=== PATIENT | female | born 1955 | race Caucasian/White ===

== ENCOUNTER 2018-08-29 19:13 | Inpatient (IN) | payer MEDICARE, OTHER ==
[2018-08-29 23:10] LABS: ADD UMIC YES; UR ASCORBIC ACID 40 mg/dL (NEGATIVE); UR BACTERIA FEW /HPF (NONE SEEN); UR BILIRUBIN (Dip) NEGATIVE (NEGATIVE); UR BLOOD (Dip) NEGATIVE (NEGATIVE); UR BUDDING YEAST FEW /HPF (NONE SEEN); UR CLARITY CLOUDY (CLEAR); UR COLOR YELLOW (YELLOW); UR GLUCOSE (Dip) NEGATIVE (NEGATIVE); UR KETONES (Dip) TRACE mg/dL (NEGATIVE); UR LEUKOCYTE ESTERASE (Dip) 3+ Leu/ul (NEGATIVE); UR MUCUS FEW /HPF (NONE SEEN); UR NITRITE (Dip) NEGATIVE (NEGATIVE); UR RBC 18 /HPF (0-5); UR SPECIFIC GRAVITY (Dip) 1.024 (1.003-1.030); UR SQUAMOUS EPITHELIAL CELL MODERATE /HPF (FEW); UR TOTAL PROTEIN (Dip) NEGATIVE (NEGATIVE); UR UROBILINOGEN (Dip) NEGATIVE (NEGATIVE); UR WBC > 182 /HPF (0-5)
[2018-08-29] MEDS: HYDROCODONE/APAP (10/325) TAB PO (23:12)
[2018-08-29] MEDS: METHYLPHENIDATE 20 MG TAB PO (23:30)
[2018-08-30] MEDS: PANTOPRAZOLE (EC) 40 MG TAB PO ×3 (01:02→18:51)
[2018-08-30] MEDS: CELECOXIB 200 MG CAP PO ×3 (01:03→21:09)
[2018-08-30] MEDS: DIAZEPAM 2 MG TAB PO ×3 (01:03→21:10)
[2018-08-30] MEDS: DIVALPROEX (ER) 250 MG TAB PO ×3 (01:04→21:10)
[2018-08-30] MEDS: RANITIDINE 150 MG TAB PO ×3 (01:11→21:10)
[2018-08-30] MEDS: CLOZAPINE 100 MG TABLET PO ×2 (02:12→21:27)
[2018-08-30] MEDS: VANCOMYCIN HCL 250 MG/5ML POSYG PO ×5 (02:12→23:29)
[2018-08-30] MEDS: MESALAMINE (SR) 250 MG CAP PO ×3 (02:13→21:09)
[2018-08-30] MEDS: PERPHENAZINE 4 MG TAB PO ×3 (02:13→20:01)
[2018-08-30] MEDS: ESTRADIOL 1 MG TAB PO ×2 (02:13→21:10)
[2018-08-30 07:11] LABS: ADD MAN DIFF? NO
[2018-08-30 07:14] LABS: WHITE BLOOD COUNT 9.9 10^3/ul (4.8-10.8)
[2018-08-30 07:14] LABS: BASOPHIL # 0.3 10^3/ul (0.0-0.1); BASOPHILS % 2.7 % (0.0-2.0); EOSINOPHILS # 0.6 10^3/ul (0.0-0.5); EOSINOPHILS % 6.1 % (0.0-7.0); HEMATOCRIT 30.9 % (37.0-47.0); HEMOGLOBIN 9.1 g/dl (12.0-16.0); LYMPHOCYTES # 2.5 10^3/ul (0.8-2.9); LYMPHOCYTES % 24.8 % (15.0-51.0); MEAN CORPUSCULAR HEMOGLOBIN 27.8 pg (29.0-33.0); MEAN CORPUSCULAR HGB CONC 29.4 g/dl (32.0-37.0); MEAN CORPUSCULAR VOLUME 94.5 fl (82.0-101.0); MEAN PLATELET VOLUME 10.8 fl (7.4-10.4); MONOCYTE # 0.9 10^3/ul (0.3-0.9); MONOCYTES % 9.5 % (0.0-11.0); NEUTROPHIL # 5.1 10^3/ul (1.6-7.5); PLATELET COUNT 162 10^3/UL (140-415); RED BLOOD COUNT 3.27 10^6/ul (4.20-5.40); RED CELL DISTRIBUTION WIDTH 14.5 % (11.5-14.5)
[2018-08-30 07:55] LABS: ALANINE AMINOTRANSFERASE 26 IU/L (13-69); ALBUMIN 3.6 g/dl (3.3-4.9); ALBUMIN/GLOBULIN RATIO 0.92; ALKALINE PHOSPHATASE 107 IU/L (42-121); ANION GAP 7 (5-13); ASPARTATE AMINO TRANSFERASE 32 IU/L (15-46); BILIRUBIN,INDIRECT 0.1 mg/dl (0-1.1); BILIRUBIN,TOTAL 0.1 mg/dl (0.2-1.3); BLOOD UREA NITROGEN 37 mg/dl (7-20); CARBON DIOXIDE 35 mmol/L (21-31); CHLORIDE 101 mmol/L (97-110); CREATININE 1.02 mg/dl (0.44-1.00); Estimated GFR 54 mL/min (>60); GLUCOSE 93 mg/dl (70-220); POTASSIUM 4.5 mmol/L (3.5-5.1); SODIUM 143 mmol/L (135-144); TOTAL PROTEIN 7.5 g/dl (6.1-8.1)
[2018-08-30] MEDS ORDERED: CELECOXIB 200 MG CAP PO (09:00)
[2018-08-30] MEDS ORDERED: PARNATE PO (09:00)
[2018-08-30] MEDS ORDERED: DIAZEPAM 2 MG TAB PO (09:00)
[2018-08-30] MEDS: CHOLECALCIFEROL 1,000 UNIT TAB PO (09:42)
[2018-08-30] MEDS: HYDROCODONE/APAP (10/325) TAB PO ×3 (09:42→21:31)
[2018-08-30] MEDS: METHYLPHENIDATE 5 MG TAB PO ×2 (11:56→17:00)
[2018-08-30] MEDS: TRANYLCYPROMINE 10 MG PO (17:30)
[2018-08-30] MEDS ORDERED: CLOZAPINE 100 MG TABLET PO ×2 (21:00)
[2018-08-31] MEDS: VANCOMYCIN HCL 250 MG/5ML POSYG PO ×5 (06:33→23:08)
[2018-08-31] MEDS: METHYLPHENIDATE 5 MG TAB PO ×2 (06:34→08:23)
[2018-08-31] MEDS: PANTOPRAZOLE (EC) 40 MG TAB PO ×3 (06:41→17:46)
[2018-08-31 07:10] LABS: ADD MAN DIFF? NO
[2018-08-31 07:12] LABS: WHITE BLOOD COUNT 11.2 10^3/ul (4.8-10.8)
[2018-08-31 07:12] LABS: BASOPHIL # 0.2 10^3/ul (0.0-0.1); BASOPHILS % 2.1 % (0.0-2.0); EOSINOPHILS # 0.6 10^3/ul (0.0-0.5); EOSINOPHILS % 4.9 % (0.0-7.0); HEMOGLOBIN 9.2 g/dl (12.0-16.0); MEAN CORPUSCULAR HGB CONC 29.7 g/dl (32.0-37.0); MEAN CORPUSCULAR VOLUME 94.2 fl (82.0-101.0); MEAN PLATELET VOLUME 10.9 fl (7.4-10.4); MONOCYTE # 1.1 10^3/ul (0.3-0.9); MONOCYTES % 10.2 % (0.0-11.0); NEUTROPHIL # 6.9 10^3/ul (1.6-7.5); NEUTROPHILS % 61.8 % (39.0-77.0); PLATELET COUNT 170 10^3/UL (140-415); RED BLOOD COUNT 3.29 10^6/ul (4.20-5.40)
[2018-08-31 07:43] LABS: ANION GAP 9 (5-13); BLOOD UREA NITROGEN 34 mg/dl (7-20); CALCIUM 9.7 mg/dl (8.4-10.2); CARBON DIOXIDE 32 mmol/L (21-31); CHLORIDE 103 mmol/L (97-110); CREATININE 1.05 mg/dl (0.44-1.00); Estimated GFR 53 mL/min (>60); GLUCOSE 101 mg/dl (70-220); MAGNESIUM 1.6 mg/dl (1.7-2.5); POTASSIUM 4.4 mmol/L (3.5-5.1); SODIUM 144 mmol/L (135-144)
[2018-08-31] MEDS ORDERED: TRANYLCYPROMINE 10 MG PO (09:00)
[2018-08-31] MEDS: MESALAMINE (SR) 250 MG CAP PO ×2 (09:45→20:39)
[2018-08-31] MEDS: TRANYLCYPROMINE 10 MG PO (09:45)
[2018-08-31] MEDS: DIAZEPAM 2 MG TAB PO ×2 (09:46→20:40)
[2018-08-31] MEDS: RANITIDINE 150 MG TAB PO ×2 (09:46→20:38)
[2018-08-31] MEDS: CHOLECALCIFEROL 1,000 UNIT TAB PO (09:46)
[2018-08-31] MEDS: PERPHENAZINE 4 MG TAB PO ×2 (09:46→20:41)
[2018-08-31] MEDS: DIVALPROEX (ER) 250 MG TAB PO ×2 (09:47→20:39)
[2018-08-31] MEDS: CELECOXIB 200 MG CAP PO ×2 (09:47→20:40)
[2018-08-31] MEDS ORDERED: GENTAMICIN IV PER PHARMACY XX (11:00)
[2018-08-31] MEDS: METHYLPHENIDATE 20 MG TAB PO ×2 (11:00→15:00)
[2018-08-31] MEDS: MAGNESIUM OXIDE 400 MG TAB PO (12:47)
[2018-08-31] MEDS: HYDROCODONE/APAP (10/325) TAB PO ×3 (12:48→23:04)
[2018-08-31] MEDS: GENTAMICIN 350 MG in DEXTROSE 5% 100 ML IVPB (14:11)
[2018-08-31] MEDS: CLOZAPINE 100 MG TABLET PO (20:37)
[2018-08-31] MEDS: ESTRADIOL 1 MG TAB PO (20:39)
[2018-09-01 00:07] LABS: GENTAMICIN,RANDOM 6.5 ug/ml
[2018-09-01] MEDS: PANTOPRAZOLE (EC) 40 MG TAB PO ×2 (06:43→17:58)
[2018-09-01] MEDS: VANCOMYCIN HCL 250 MG/5ML POSYG PO ×3 (06:44→17:58)
[2018-09-01] MEDS: METHYLPHENIDATE 20 MG TAB PO ×3 (07:32→14:35)
[2018-09-01] MEDS: TRANYLCYPROMINE 10 MG PO (07:33)
[2018-09-01] MEDS: CHOLECALCIFEROL 1,000 UNIT TAB PO (08:52)
[2018-09-01] MEDS: RANITIDINE 150 MG TAB PO ×2 (08:53→20:12)
[2018-09-01] MEDS: MESALAMINE (SR) 250 MG CAP PO ×2 (08:54→20:14)
[2018-09-01] MEDS: MAGNESIUM OXIDE 400 MG TAB PO (08:55)
[2018-09-01] MEDS: PERPHENAZINE 4 MG TAB PO ×3 (08:55→23:04)
[2018-09-01] MEDS: DIAZEPAM 2 MG TAB PO ×2 (08:55→20:13)
[2018-09-01] MEDS: DIVALPROEX (ER) 250 MG TAB PO ×2 (08:55→20:14)
[2018-09-01] MEDS: ENOXAPARIN 30 MG/0.3 ML SYG SC (08:57)
[2018-09-01] MEDS: HYDROCODONE/APAP (10/325) TAB PO ×3 (08:57→20:12)
[2018-09-01] MEDS: ESTRADIOL 1 MG TAB PO (20:13)
[2018-09-01] MEDS: CLOZAPINE 100 MG TABLET PO (20:15)
[2018-09-02] MEDS: VANCOMYCIN HCL 250 MG/5ML POSYG PO ×5 (00:17→23:28)
[2018-09-02] MEDS: HYDROCODONE/APAP (10/325) TAB PO ×5 (00:18→23:27)
[2018-09-02] MEDS: GENTAMICIN 350 MG in DEXTROSE 5% 100 ML IVPB (01:53)
[2018-09-02] MEDS: METHYLPHENIDATE 20 MG TAB PO ×3 (06:25→15:00)
[2018-09-02] MEDS: PANTOPRAZOLE (EC) 40 MG TAB PO ×2 (06:25→18:46)
[2018-09-02] MEDS: TRANYLCYPROMINE 10 MG PO (06:45)
[2018-09-02 07:38] LABS: ADD MAN DIFF? NO
[2018-09-02 07:46] LABS: ABNORMAL IP MESSAGE 1; BASOPHIL # 0.2 10^3/ul (0.0-0.1); BASOPHILS % 2.7 % (0.0-2.0); EOSINOPHILS # 0.5 10^3/ul (0.0-0.5); EOSINOPHILS % 6.2 % (0.0-7.0); HEMATOCRIT 29.4 % (37.0-47.0); HEMOGLOBIN 8.5 g/dl (12.0-16.0); LYMPHOCYTES # 1.9 10^3/ul (0.8-2.9); MEAN CORPUSCULAR HEMOGLOBIN 27.2 pg (29.0-33.0); MEAN CORPUSCULAR HGB CONC 28.9 g/dl (32.0-37.0); MEAN CORPUSCULAR VOLUME 94.2 fl (82.0-101.0); MEAN PLATELET VOLUME 11.3 fl (7.4-10.4); MONOCYTE # 0.7 10^3/ul (0.3-0.9); MONOCYTES % 9.8 % (0.0-11.0); NEUTROPHIL # 3.9 10^3/ul (1.6-7.5); NEUTROPHILS % 52.5 % (39.0-77.0); PLATELET COUNT 146 10^3/UL (140-415); RED BLOOD COUNT 3.12 10^6/ul (4.20-5.40)
[2018-09-02 07:46] LABS: WHITE BLOOD COUNT 7.5 10^3/ul (4.8-10.8)
[2018-09-02 08:00] LABS: POSITIVE DIFF @See below
[2018-09-02 08:05] LABS: ANION GAP 8 (5-13); BLOOD UREA NITROGEN 33 mg/dl (7-20); CALCIUM 9.3 mg/dl (8.4-10.2); CARBON DIOXIDE 35 mmol/L (21-31); CHLORIDE 99 mmol/L (97-110); CREATININE 1.05 mg/dl (0.44-1.00); Estimated GFR 53 mL/min (>60); GLUCOSE 88 mg/dl (70-220); MAGNESIUM 1.6 mg/dl (1.7-2.5); PHOSPHORUS 4.6 mg/dl (2.5-4.9); POTASSIUM 4.4 mmol/L (3.5-5.1); SODIUM 142 mmol/L (135-144)
[2018-09-02] MEDS: MESALAMINE (SR) 250 MG CAP PO ×2 (09:00→21:19)
[2018-09-02] MEDS ORDERED: ALBUTEROL/IPRATROPIUM (NEB) 3 ML AMP HHN (09:30)
[2018-09-02] MEDS: PERPHENAZINE 4 MG TAB PO ×2 (10:20→21:19)
[2018-09-02] MEDS: MAGNESIUM OXIDE 400 MG TAB PO (10:20)
[2018-09-02] MEDS: RANITIDINE 150 MG TAB PO ×2 (10:20→21:19)
[2018-09-02] MEDS: DIVALPROEX (ER) 250 MG TAB PO ×2 (10:20→21:19)
[2018-09-02] MEDS: DIAZEPAM 2 MG TAB PO ×2 (10:20→21:19)
[2018-09-02] MEDS: CHOLECALCIFEROL 1,000 UNIT TAB PO (10:20)
[2018-09-02] MEDS: ENOXAPARIN 30 MG/0.3 ML SYG SC (10:35)
[2018-09-02] MEDS: CLOZAPINE 100 MG TABLET PO (21:18)
[2018-09-02] MEDS: ESTRADIOL 1 MG TAB PO (21:19)
[2018-09-03] MEDS: PERPHENAZINE 4 MG TAB PO ×3 (02:51→21:27)
[2018-09-03] MEDS: HYDROCODONE/APAP (10/325) TAB PO ×3 (03:39→20:47)
[2018-09-03] MEDS: PANTOPRAZOLE (EC) 40 MG TAB PO ×2 (06:27→17:53)
[2018-09-03] MEDS: VANCOMYCIN HCL 250 MG/5ML POSYG PO ×4 (06:27→23:02)
[2018-09-03] MEDS: METHYLPHENIDATE 20 MG TAB PO ×3 (06:27→15:00)
[2018-09-03] MEDS: TRANYLCYPROMINE 10 MG PO ×2 (07:00→12:55)
[2018-09-03] MEDS: MAGNESIUM OXIDE 400 MG TAB PO ×2 (09:00→12:52)
[2018-09-03] MEDS: DIAZEPAM 2 MG TAB PO ×2 (09:00→21:27)
[2018-09-03] MEDS: CHOLECALCIFEROL 1,000 UNIT TAB PO ×2 (09:00→12:47)
[2018-09-03] MEDS: RANITIDINE 150 MG TAB PO ×3 (09:00→20:46)
[2018-09-03] MEDS: MESALAMINE (SR) 250 MG CAP PO ×3 (09:00→20:45)
[2018-09-03] MEDS: DIVALPROEX (ER) 250 MG TAB PO ×3 (09:00→20:46)
[2018-09-03] MEDS: ENOXAPARIN 30 MG/0.3 ML SYG SC ×2 (09:00→13:07)
[2018-09-03 14:31] LABS: GENTAMICIN,TROUGH < 0.6 ug/ml (1.0-2.0)
[2018-09-03] MEDS: GENTAMICIN 350 MG in DEXTROSE 5% 100 ML IVPB (14:33)
[2018-09-03] MEDS: CLOZAPINE 100 MG TABLET PO (20:45)
[2018-09-03] MEDS: ESTRADIOL 1 MG TAB PO (20:45)
[2018-09-04] MEDS: VANCOMYCIN HCL 250 MG/5ML POSYG PO ×4 (06:32→23:13)
[2018-09-04] MEDS: PANTOPRAZOLE (EC) 40 MG TAB PO ×2 (06:32→17:51)
[2018-09-04] MEDS: TRANYLCYPROMINE 10 MG PO (06:32)
[2018-09-04] MEDS: METHYLPHENIDATE 20 MG TAB PO ×3 (06:32→17:51)
[2018-09-04 07:17] LABS: ADD MAN DIFF? NO
[2018-09-04 07:22] LABS: WHITE BLOOD COUNT 9.8 10^3/ul (4.8-10.8)
[2018-09-04 07:22] LABS: BASOPHIL # 0.1 10^3/ul (0.0-0.1); BASOPHILS % 1.3 % (0.0-2.0); EOSINOPHILS # 0.4 10^3/ul (0.0-0.5); EOSINOPHILS % 3.6 % (0.0-7.0); HEMATOCRIT 28.9 % (37.0-47.0); HEMOGLOBIN 8.5 g/dl (12.0-16.0); LYMPHOCYTES # 1.4 10^3/ul (0.8-2.9); LYMPHOCYTES % 14.4 % (15.0-51.0); MEAN CORPUSCULAR HEMOGLOBIN 27.5 pg (29.0-33.0); MEAN CORPUSCULAR HGB CONC 29.4 g/dl (32.0-37.0); MEAN CORPUSCULAR VOLUME 93.5 fl (82.0-101.0); MEAN PLATELET VOLUME 11.5 fl (7.4-10.4); MONOCYTE # 1.3 10^3/ul (0.3-0.9); MONOCYTES % 13.5 % (0.0-11.0); NEUTROPHIL # 6.4 10^3/ul (1.6-7.5); NEUTROPHILS % 65.5 % (39.0-77.0); PLATELET COUNT 135 10^3/UL (140-415); RED BLOOD COUNT 3.09 10^6/ul (4.20-5.40); RED CELL DISTRIBUTION WIDTH 14.9 % (11.5-14.5)
[2018-09-04 07:39] LABS: ANION GAP 7 (5-13); BLOOD UREA NITROGEN 18 mg/dl (7-20); CALCIUM 9.1 mg/dl (8.4-10.2); CARBON DIOXIDE 36 mmol/L (21-31); CHLORIDE 99 mmol/L (97-110); CREATININE 0.89 mg/dl (0.44-1.00); Estimated GFR > 60 mL/min (>60); GLUCOSE 91 mg/dl (70-220); MAGNESIUM 1.6 mg/dl (1.7-2.5); PHOSPHORUS 4.4 mg/dl (2.5-4.9); POTASSIUM 4.2 mmol/L (3.5-5.1); SODIUM 142 mmol/L (135-144)
[2018-09-04] MEDS: PERPHENAZINE 4 MG TAB PO ×3 (08:42→20:46)
[2018-09-04] MEDS: MAGNESIUM OXIDE 400 MG TAB PO (08:42)
[2018-09-04] MEDS: CHOLECALCIFEROL 1,000 UNIT TAB PO (08:42)
[2018-09-04] MEDS: RANITIDINE 150 MG TAB PO ×2 (08:42→20:46)
[2018-09-04] MEDS: MESALAMINE (SR) 250 MG CAP PO ×2 (08:42→20:46)
[2018-09-04] MEDS: DIVALPROEX (ER) 250 MG TAB PO ×2 (08:43→20:46)
[2018-09-04] MEDS: DIAZEPAM 2 MG TAB PO ×2 (08:43→20:46)
[2018-09-04] MEDS: ENOXAPARIN 30 MG/0.3 ML SYG SC (08:44)
[2018-09-04] MEDS: HYDROCODONE/APAP (10/325) TAB PO ×3 (08:44→20:47)
[2018-09-04] MEDS: CLOZAPINE 100 MG TABLET PO (20:45)
[2018-09-04] MEDS: ESTRADIOL 1 MG TAB PO (20:46)
[2018-09-04] MEDS: LEVALBUTEROL (NEB) 0.31 MG/3 ML AMP HHN (22:58)
[2018-09-05] MEDS: GENTAMICIN 350 MG in DEXTROSE 5% 100 ML IVPB (02:06)
[2018-09-05] MEDS: HYDROCODONE/APAP (10/325) TAB PO ×3 (05:15→19:47)
[2018-09-05] MEDS: PANTOPRAZOLE (EC) 40 MG TAB PO ×2 (06:34→17:17)
[2018-09-05] MEDS: VANCOMYCIN HCL 250 MG/5ML POSYG PO ×4 (06:34→23:08)
[2018-09-05] MEDS: METHYLPHENIDATE 20 MG TAB PO ×3 (06:34→15:00)
[2018-09-05] MEDS: TRANYLCYPROMINE 10 MG PO (06:38)
[2018-09-05] MEDS: MESALAMINE (SR) 250 MG CAP PO ×2 (09:16→20:46)
[2018-09-05] MEDS: DIVALPROEX (ER) 250 MG TAB PO ×2 (09:16→20:47)
[2018-09-05] MEDS: PERPHENAZINE 4 MG TAB PO ×2 (09:16→20:47)
[2018-09-05] MEDS: MAGNESIUM OXIDE 400 MG TAB PO (09:16)
[2018-09-05] MEDS: DIAZEPAM 2 MG TAB PO ×2 (09:16→20:46)
[2018-09-05] MEDS: CHOLECALCIFEROL 1,000 UNIT TAB PO (09:16)
[2018-09-05] MEDS: ENOXAPARIN 30 MG/0.3 ML SYG SC (09:27)
[2018-09-05] MEDS: RANITIDINE 150 MG TAB PO ×2 (09:50→20:45)
[2018-09-05] MEDS: FLUCONAZOLE 100 MG TAB PO (12:26)
[2018-09-05] MEDS: ESTRADIOL 1 MG TAB PO (20:47)
[2018-09-05] MEDS: CLOZAPINE 100 MG TABLET PO (20:47)
[2018-09-05] MEDS: ASCORBIC ACID 250 MG TAB PO (21:04)
[2018-09-05] MEDS: GUAIFENESIN/CODEINE 5ML CUP PO (21:04)
[2018-09-06] MEDS: PERPHENAZINE 4 MG TAB PO ×3 (00:43→20:10)
[2018-09-06] MEDS: GUAIFENESIN/CODEINE 5ML CUP PO ×2 (00:43→20:50)
[2018-09-06] MEDS: HYDROCODONE/APAP (10/325) TAB PO ×3 (00:43→17:32)
[2018-09-06] MEDS: PANTOPRAZOLE (EC) 40 MG TAB PO ×2 (06:01→17:29)
[2018-09-06] MEDS: METHYLPHENIDATE 20 MG TAB PO ×3 (06:01→15:01)
[2018-09-06] MEDS: VANCOMYCIN HCL 250 MG/5ML POSYG PO ×3 (06:01→17:29)
[2018-09-06] MEDS: TRANYLCYPROMINE 10 MG PO (06:01)
[2018-09-06 06:37] LABS: BLOOD UREA NITROGEN 17 mg/dl (7-20)
[2018-09-06 06:37] LABS: CREATININE 1.07 mg/dl (0.44-1.00)
[2018-09-06] MEDS: MAGNESIUM OXIDE 400 MG TAB PO (09:17)
[2018-09-06] MEDS: PREDNISOLONE ACET 0.12% 5 ML OPH BOTH EYES (09:17)
[2018-09-06] MEDS: FLUCONAZOLE 100 MG TAB PO (09:17)
[2018-09-06] MEDS: DIVALPROEX (ER) 250 MG TAB PO ×2 (09:17→20:09)
[2018-09-06] MEDS: DIAZEPAM 2 MG TAB PO ×2 (09:18→20:09)
[2018-09-06] MEDS: RANITIDINE 150 MG TAB PO ×2 (09:18→20:09)
[2018-09-06] MEDS: MESALAMINE (SR) 250 MG CAP PO ×2 (09:18→20:08)
[2018-09-06] MEDS: CHOLECALCIFEROL 1,000 UNIT TAB PO (09:18)
[2018-09-06] MEDS: ENOXAPARIN 30 MG/0.3 ML SYG SC (09:28)
[2018-09-06] MEDS: GENTAMICIN 350 MG in DEXTROSE 5% 100 ML IVPB (13:25)
[2018-09-06] MEDS: CLOZAPINE 100 MG TABLET PO (20:09)
[2018-09-06] MEDS: ASCORBIC ACID 250 MG TAB PO (20:09)
[2018-09-06] MEDS: ESTRADIOL 1 MG TAB PO (20:17)
[2018-09-06] MEDS: LUMIGAN 0.01% EYE DROPS BOTH EYES (20:17)
[2018-09-06] MEDS: LEVALBUTEROL (NEB) 0.31 MG/3 ML AMP HHN (21:18)
[2018-09-07] MEDS: VANCOMYCIN HCL 250 MG/5ML POSYG PO ×4 (00:03→17:17)
[2018-09-07] MEDS: HYDROCODONE/APAP (10/325) TAB PO ×3 (03:38→20:41)
[2018-09-07] MEDS: GUAIFENESIN/CODEINE 5ML CUP PO ×2 (03:38→17:58)
[2018-09-07] MEDS: PANTOPRAZOLE (EC) 40 MG TAB PO ×2 (06:10→17:17)
[2018-09-07] MEDS: TRANYLCYPROMINE 10 MG PO (06:10)
[2018-09-07] MEDS: METHYLPHENIDATE 20 MG TAB PO ×3 (06:10→14:53)
[2018-09-07] MEDS: DIAZEPAM 2 MG TAB PO ×2 (08:17→20:41)
[2018-09-07] MEDS: PREDNISOLONE ACET 0.12% 5 ML OPH BOTH EYES (08:17)
[2018-09-07] MEDS: DIVALPROEX (ER) 250 MG TAB PO ×2 (08:18→20:39)
[2018-09-07] MEDS: RANITIDINE 150 MG TAB PO ×2 (08:18→20:40)
[2018-09-07] MEDS: PERPHENAZINE 4 MG TAB PO ×2 (08:18→20:39)
[2018-09-07] MEDS: CHOLECALCIFEROL 1,000 UNIT TAB PO (08:18)
[2018-09-07] MEDS: FLUCONAZOLE 100 MG TAB PO (08:18)
[2018-09-07] MEDS: MAGNESIUM OXIDE 400 MG TAB PO (08:18)
[2018-09-07] MEDS: MESALAMINE (SR) 250 MG CAP PO ×2 (08:18→20:38)
[2018-09-07] MEDS: ENOXAPARIN 30 MG/0.3 ML SYG SC (08:19)
[2018-09-07] MEDS: ESTRADIOL 1 MG TAB PO (20:39)
[2018-09-07] MEDS: ASCORBIC ACID 250 MG TAB PO (20:40)
[2018-09-07] MEDS: CLOZAPINE 100 MG TABLET PO (20:40)
[2018-09-07] MEDS: LUMIGAN 0.01% EYE DROPS BOTH EYES (20:42)
[2018-09-08] MEDS: VANCOMYCIN HCL 250 MG/5ML POSYG PO ×4 (00:09→17:32)
[2018-09-08] MEDS: GENTAMICIN 350 MG in DEXTROSE 5% 100 ML IVPB (02:19)
[2018-09-08] MEDS: PANTOPRAZOLE (EC) 40 MG TAB PO ×2 (07:17→17:34)
[2018-09-08] MEDS: METHYLPHENIDATE 20 MG TAB PO ×3 (07:18→14:43)
[2018-09-08] MEDS: TRANYLCYPROMINE 10 MG PO (07:18)
[2018-09-08] MEDS: PREDNISOLONE ACET 0.12% 5 ML OPH BOTH EYES (08:40)
[2018-09-08] MEDS: DIAZEPAM 2 MG TAB PO ×2 (08:42→20:40)
[2018-09-08] MEDS: DIVALPROEX (ER) 250 MG TAB PO ×2 (08:42→20:39)
[2018-09-08] MEDS: MESALAMINE (SR) 250 MG CAP PO ×2 (08:42→20:57)
[2018-09-08] MEDS: RANITIDINE 150 MG TAB PO ×2 (08:42→20:40)
[2018-09-08] MEDS: PERPHENAZINE 4 MG TAB PO ×2 (08:42→20:39)
[2018-09-08] MEDS: MAGNESIUM OXIDE 400 MG TAB PO (08:43)
[2018-09-08] MEDS: FLUCONAZOLE 100 MG TAB PO (08:43)
[2018-09-08] MEDS: CHOLECALCIFEROL 1,000 UNIT TAB PO (08:43)
[2018-09-08] MEDS: ENOXAPARIN 30 MG/0.3 ML SYG SC (08:52)
[2018-09-08] MEDS: HYDROCODONE/APAP (10/325) TAB PO ×2 (13:30→20:41)
[2018-09-08] MEDS: GUAIFENESIN/CODEINE 5ML CUP PO ×2 (17:32→22:17)
[2018-09-08] MEDS: ESTRADIOL 1 MG TAB PO (20:39)
[2018-09-08] MEDS: CLOZAPINE 100 MG TABLET PO (20:40)
[2018-09-08] MEDS: ASCORBIC ACID 250 MG TAB PO (20:40)
[2018-09-08] MEDS: LUMIGAN 0.01% EYE DROPS BOTH EYES (20:40)
[2018-09-09] MEDS: VANCOMYCIN HCL 250 MG/5ML POSYG PO ×4 (00:14→17:42)
[2018-09-09] MEDS: PERPHENAZINE 4 MG TAB PO ×3 (00:18→20:45)
[2018-09-09] MEDS: HYDROCODONE/APAP (10/325) TAB PO ×3 (00:27→20:46)
[2018-09-09] MEDS: PANTOPRAZOLE (EC) 40 MG TAB PO ×2 (06:44→17:42)
[2018-09-09] MEDS: TRANYLCYPROMINE 10 MG PO (06:48)
[2018-09-09] MEDS: METHYLPHENIDATE 20 MG TAB PO ×3 (06:48→15:15)
[2018-09-09] MEDS: PREDNISOLONE ACET 0.12% 5 ML OPH BOTH EYES (08:58)
[2018-09-09] MEDS: DIVALPROEX (ER) 250 MG TAB PO ×2 (08:59→20:44)
[2018-09-09] MEDS: FLUCONAZOLE 100 MG TAB PO (08:59)
[2018-09-09] MEDS: DIAZEPAM 2 MG TAB PO ×2 (09:00→20:45)
[2018-09-09] MEDS: RANITIDINE 150 MG TAB PO ×2 (09:00→20:45)
[2018-09-09] MEDS: CHOLECALCIFEROL 1,000 UNIT TAB PO (09:00)
[2018-09-09] MEDS: MAGNESIUM OXIDE 400 MG TAB PO (09:00)
[2018-09-09] MEDS: ENOXAPARIN 30 MG/0.3 ML SYG SC (09:06)
[2018-09-09] MEDS: MESALAMINE (SR) 250 MG CAP PO ×2 (11:52→20:44)
[2018-09-09] MEDS: LEVALBUTEROL (NEB) 0.31 MG/3 ML AMP HHN ×2 (13:24→20:34)
[2018-09-09] MEDS: ESTRADIOL 1 MG TAB PO (20:45)
[2018-09-09] MEDS: LUMIGAN 0.01% EYE DROPS BOTH EYES (20:45)
[2018-09-09] MEDS: CLOZAPINE 100 MG TABLET PO (20:45)
[2018-09-09] MEDS: ASCORBIC ACID 250 MG TAB PO (20:45)
[2018-09-09] MEDS: GUAIFENESIN/CODEINE 5ML CUP PO (20:46)
[2018-09-10] MEDS: VANCOMYCIN HCL 250 MG/5ML POSYG PO ×4 (02:58→18:00)
[2018-09-10] MEDS: PANTOPRAZOLE (EC) 40 MG TAB PO ×2 (06:49→18:30)
[2018-09-10] MEDS: TRANYLCYPROMINE 10 MG PO (06:49)
[2018-09-10] MEDS: METHYLPHENIDATE 20 MG TAB PO ×3 (06:49→16:57)
[2018-09-10] MEDS: HYDROCODONE/APAP (10/325) TAB PO ×3 (06:51→20:54)
[2018-09-10 07:18] LABS: ABNORMAL IP MESSAGE 1; HEMATOCRIT 34.4 % (37.0-47.0); HEMOGLOBIN 9.8 g/dl (12.0-16.0); MEAN CORPUSCULAR HEMOGLOBIN 26.8 pg (29.0-33.0); MEAN CORPUSCULAR HGB CONC 28.5 g/dl (32.0-37.0); MEAN PLATELET VOLUME 10.7 fl (7.4-10.4); PLATELET COUNT 209 10^3/UL (140-415); RED BLOOD COUNT 3.66 10^6/ul (4.20-5.40); RED CELL DISTRIBUTION WIDTH 14.9 % (11.5-14.5)
[2018-09-10 07:18] LABS: WHITE BLOOD COUNT 7.7 10^3/ul (4.8-10.8)
[2018-09-10 07:27] LABS: POSITIVE DIFF @See below
[2018-09-10 07:28] LABS: ADD MAN DIFF? YES
[2018-09-10 07:53] LABS: ANION GAP 8 (5-13); BLOOD UREA NITROGEN 14 mg/dl (7-20); CALCIUM 9.5 mg/dl (8.4-10.2); CARBON DIOXIDE 35 mmol/L (21-31); CHLORIDE 101 mmol/L (97-110); CREATININE 1.08 mg/dl (0.44-1.00); Estimated GFR 51 mL/min (>60); GLUCOSE 93 mg/dl (70-220); MAGNESIUM 1.8 mg/dl (1.7-2.5); PHOSPHORUS 4.4 mg/dl (2.5-4.9); POTASSIUM 4.4 mmol/L (3.5-5.1); SODIUM 144 mmol/L (135-144)
[2018-09-10 08:42] LABS: ANISOCYTOSIS 1+ (0-0); BASOPHIL #M 0.1 10^3/ul (0.0-0.0); BASOPHILS % (M) 2 % (0-2); EOSINOPHILS % (M) 6 % (0-7); HYPOCHROMASIA 1+ (0-0); LYMPHOCYTES % (M) 27 % (15-51); MICROCYTOSIS 1+ (0-0); MONOCYTE #M 0.5 10^3/ul (0.3-0.9); MONOCYTES % (M) 7 % (0-11); MYELOCYTES #M 0.3 10^3/ul (0.0-0.0); MYELOCYTES % (M) 4 % (0-0); PLATELET ESTIMATE NORMAL; POLYCHROMASIA 1+ (0-0); SEGMENTED NEUTROPHILS (M) % 54 % (39-77); SMUDGE%M 2 % (0-0)
[2018-09-10] MEDS: MAGNESIUM OXIDE 400 MG TAB PO (09:27)
[2018-09-10] MEDS: FLUCONAZOLE 100 MG TAB PO (09:27)
[2018-09-10] MEDS: DIAZEPAM 2 MG TAB PO ×2 (09:28→20:35)
[2018-09-10] MEDS: PERPHENAZINE 4 MG TAB PO ×2 (09:28→20:45)
[2018-09-10] MEDS: CHOLECALCIFEROL 1,000 UNIT TAB PO (09:28)
[2018-09-10] MEDS: MESALAMINE (SR) 250 MG CAP PO ×2 (09:29→20:35)
[2018-09-10] MEDS: RANITIDINE 150 MG TAB PO ×2 (09:29→20:35)
[2018-09-10] MEDS: DIVALPROEX (ER) 250 MG TAB PO ×2 (09:29→20:35)
[2018-09-10] MEDS: ENOXAPARIN 30 MG/0.3 ML SYG SC (09:32)
[2018-09-10] MEDS: PREDNISOLONE ACET 0.12% 5 ML OPH BOTH EYES (09:40)
[2018-09-10] MEDS: LUMIGAN 0.01% EYE DROPS BOTH EYES (20:36)
[2018-09-10] MEDS: ESTRADIOL 1 MG TAB PO (20:36)
[2018-09-10] MEDS: ASCORBIC ACID 250 MG TAB PO (20:36)
[2018-09-10] MEDS: CLOZAPINE 100 MG TABLET PO (20:44)
[2018-09-10] MEDS: GUAIFENESIN/CODEINE 5ML CUP PO (20:54)
[2018-09-10] MEDS: LEVALBUTEROL (NEB) 0.31 MG/3 ML AMP HHN (21:07)
[2018-09-11] MEDS: VANCOMYCIN HCL 250 MG/5ML POSYG PO ×5 (06:16→23:59)
[2018-09-11] MEDS: PANTOPRAZOLE (EC) 40 MG TAB PO ×2 (06:16→18:20)
[2018-09-11] MEDS: TRANYLCYPROMINE 10 MG PO (06:17)
[2018-09-11] MEDS: METHYLPHENIDATE 20 MG TAB PO ×3 (06:17→15:00)
[2018-09-11] MEDS: MESALAMINE (SR) 250 MG CAP PO ×3 (09:00→22:02)
[2018-09-11] MEDS: PERPHENAZINE 4 MG TAB PO ×3 (09:00→22:02)
[2018-09-11] MEDS: CHOLECALCIFEROL 1,000 UNIT TAB PO (10:01)
[2018-09-11] MEDS: DIAZEPAM 2 MG TAB PO ×2 (10:01→22:03)
[2018-09-11] MEDS: PREDNISOLONE ACET 0.12% 5 ML OPH BOTH EYES (10:01)
[2018-09-11] MEDS: DIVALPROEX (ER) 250 MG TAB PO ×2 (10:01→22:02)
[2018-09-11] MEDS: FLUCONAZOLE 100 MG TAB PO (10:02)
[2018-09-11] MEDS: MAGNESIUM OXIDE 400 MG TAB PO (10:02)
[2018-09-11] MEDS: HYDROCODONE/APAP (10/325) TAB PO ×3 (10:02→22:19)
[2018-09-11] MEDS: RANITIDINE 150 MG TAB PO ×2 (10:03→22:02)
[2018-09-11] MEDS: GUAIFENESIN/CODEINE 5ML CUP PO ×2 (14:56→22:19)
[2018-09-11] MEDS: ENOXAPARIN 30 MG/0.3 ML SYG SC (14:56)
[2018-09-11] MEDS: ASCORBIC ACID 250 MG TAB PO (22:03)
[2018-09-11] MEDS: CLOZAPINE 100 MG TABLET PO (22:03)
[2018-09-11] MEDS: LUMIGAN 0.01% EYE DROPS BOTH EYES (22:03)
[2018-09-11] MEDS: ESTRADIOL 1 MG TAB PO (22:03)
[2018-09-12] MEDS: TRANYLCYPROMINE 10 MG PO (06:19)
[2018-09-12] MEDS: VANCOMYCIN HCL 250 MG/5ML POSYG PO ×3 (06:19→17:51)
[2018-09-12] MEDS: PANTOPRAZOLE (EC) 40 MG TAB PO ×2 (06:19→17:51)
[2018-09-12] MEDS: METHYLPHENIDATE 20 MG TAB PO ×3 (06:19→15:00)
[2018-09-12] MEDS: RANITIDINE 150 MG TAB PO ×2 (09:26→21:05)
[2018-09-12] MEDS: DIVALPROEX (ER) 250 MG TAB PO ×2 (09:26→21:04)
[2018-09-12] MEDS: DIAZEPAM 2 MG TAB PO ×2 (09:26→21:05)
[2018-09-12] MEDS: PERPHENAZINE 4 MG TAB PO ×2 (09:26→21:06)
[2018-09-12] MEDS: MAGNESIUM OXIDE 400 MG TAB PO (09:27)
[2018-09-12] MEDS: PREDNISOLONE ACET 0.12% 5 ML OPH BOTH EYES (09:28)
[2018-09-12] MEDS: ENOXAPARIN 30 MG/0.3 ML SYG SC (09:30)
[2018-09-12] MEDS: HYDROCODONE/APAP (10/325) TAB PO ×3 (09:35→22:37)
[2018-09-12] MEDS: MESALAMINE (SR) 250 MG CAP PO ×2 (09:35→21:03)
[2018-09-12] MEDS: CHOLECALCIFEROL 1,000 UNIT TAB PO (09:35)
[2018-09-12] MEDS: GUAIFENESIN/CODEINE 5ML CUP PO ×2 (13:10→21:09)
[2018-09-12] MEDS: LUMIGAN 0.01% EYE DROPS BOTH EYES (21:03)
[2018-09-12] MEDS: ASCORBIC ACID 250 MG TAB PO (21:05)
[2018-09-12] MEDS: ESTRADIOL 1 MG TAB PO (21:05)
[2018-09-12] MEDS: CLOZAPINE 100 MG TABLET PO (21:43)
[2018-09-13] MEDS: VANCOMYCIN HCL 250 MG/5ML POSYG PO ×3 (00:07→11:13)
[2018-09-13] MEDS: PANTOPRAZOLE (EC) 40 MG TAB PO (06:46)
[2018-09-13] MEDS: HYDROCODONE/APAP (10/325) TAB PO ×2 (06:46→11:14)
[2018-09-13] MEDS: METHYLPHENIDATE 20 MG TAB PO ×2 (06:46→11:13)
[2018-09-13] MEDS: TRANYLCYPROMINE 10 MG PO (06:47)
[2018-09-13] MEDS: ENOXAPARIN 30 MG/0.3 ML SYG SC (09:00)
[2018-09-13] MEDS: PREDNISOLONE ACET 0.12% 5 ML OPH BOTH EYES (09:15)
[2018-09-13] MEDS: DIAZEPAM 2 MG TAB PO (09:16)
[2018-09-13] MEDS: DIVALPROEX (ER) 250 MG TAB PO (09:16)
[2018-09-13] MEDS: MAGNESIUM OXIDE 400 MG TAB PO (09:16)
[2018-09-13] MEDS: CHOLECALCIFEROL 1,000 UNIT TAB PO (09:16)
[2018-09-13] MEDS: RANITIDINE 150 MG TAB PO (09:16)
[2018-09-13] MEDS: MESALAMINE (SR) 250 MG CAP PO (09:16)
[2018-09-13] MEDS: PERPHENAZINE 4 MG TAB PO (09:16)
== END 2018-09-13 11:45 | disposition home health service (06) | DRG 560 ==
LOC: VRC 19:13
DX: S82.841D Displaced bimalleolar fracture of right lower leg, subsequent encounter for closed fracture with routine healing (principal); N17.9 Acute kidney failure, unspecified; K50.90 Crohn's disease, unspecified, without complications; A04.72 Enterocolitis due to Clostridium difficile, not specified as recurrent; N39.0 Urinary tract infection, site not specified; E87.3 Alkalosis; B37.49 Other urogenital candidiasis; R53.81 Other malaise; F31.9 Bipolar disorder, unspecified; F41.8 Other specified anxiety disorders; D64.9 Anemia, unspecified; M79.7 Fibromyalgia; H54.8 Legal blindness, as defined in USA; K29.70 Gastritis, unspecified, without bleeding; E03.9 Hypothyroidism, unspecified; Z85.42 Personal history of malignant neoplasm of other parts of uterus; Z74.09 Other reduced mobility; E83.42 Hypomagnesemia; J47.9 Bronchiectasis, uncomplicated; F43.10 Post-traumatic stress disorder, unspecified; G47.33 Obstructive sleep apnea (adult) (pediatric); B35.1 Tinea unguium; M20.42 Other hammer toe(s) (acquired), left foot; N39.498 Other specified urinary incontinence
CPT/HCPCS: 71045; 80048; 80053; 80170; 81001; 82565; 83735; 84100; 84520; 85025; 87070; 87081; 87086; 94640; 94664; 97110; 97112; 97116; 97163; 97167; 97530; 97535; 97542